=== PATIENT | female | born 1935 | race Caucasian/White ===

== ENCOUNTER 2016-07-13 20:04 | Emergency (ER) | payer OTHER ==
[2016-07-13 20:14] VITALS: PULSE 89; RESP 20
--- NOTE | 2016-07-13 20:18 | EDPHY ---
H & P Stated Complaint: intermittant r arm tingling x3 days, nausea Time Seen by Provider: 07/13/16 20:17 HPI/ROS: CHIEF COMPLAINT: Intermittent right arm paresthesias HISTORY OF PRESENT ILLNESS: The patient presents to the ED with a 3 day history of intermittent paresthesias in her right arm. The patient denies any associated weakness, slurred speech, headache or neck pain. The patient has TIA. The patient denies history of hypertension or diabetes. She does have hypercholesterolemia which is control with a statin. The patient denies any history of fall or cervical manipulation. The patient reports no recent surgery. The patient is a nonsmoker. She currently is asymptomatic. REVIEW OF SYSTEMS: A comprehensive 10 point review of systems is otherwise negative aside from elements mentioned in the history of present illness. Source: Patient Exam Limitations: No limitations - Personal History Current Tetanus Diphtheria and Acellular Pertussis (TDAP): Yes Tetanus Vaccine Date: with in last 5 years - Medical/Surgical History Hx Asthma: No Hx Chronic Respiratory Disease: No Hx Diabetes: No Hx Cardiac Disease: No Hx Renal Disease: No Hx Cirrhosis: No Hx Alcoholism: No Hx HIV/AIDS: No Hx Splenectomy or Spleen Trauma: No Other PMH: high cholestrol, , appendectomy. hysterectomy, bilat hip replacement, cataracts, toncilectomy - Social History Smoking Status: Former smoker - Physical Exam Exam: General Appearance: Alert, no distress Eyes: Pupils equal and round no pallor or injection ENT, Mouth: Mucous membranes moist Respiratory: There are no retractions, lungs are clear to auscultation Cardiovascular: Regular rate and rhythm Gastrointestinal: Abdomen is soft and nontender, no masses, bowel sounds normal Neurological: Alert and oriented x4, 5/5 strength noted all 4 extremities, sensation intact to light touch throughout the upper extremities, NIH stroke scale equals 0, cranial nerves 2-12 intact Skin: Warm and dry, no rashes Musculoskeletal: Neck is supple nontender Extremities: symmetrical, full range of motion Constitutional: Initial Vital Signs Temperature (C) 36.8 C 07/13/16 20:09 Heart Rate 89 07/13/16 20:09 Respiratory Rate 20 07/13/16 20:09 Blood Pressure 174/90 H 07/13/16 20:09 O2 Sat (%) 93 07/13/16 20:09 O2 Delivery Mode Room Air Allergies/Adverse Reactions: No Known Allergies Allergy (Unverified 07/13/16 20:07) Home Medications: Medication Instructions Recorded Premarin 07/13/16 Medical Decision Making - Diagnostics EKG Interpretation: EKG: Complete interpretation has been separately recorded in the [employer] archive. Impression: Sinus rhythm, no acute ischemic changes noted Imaging Results: Imaging Impressions Carotid Doppler Study 07/13/16 20:39 Impression: No evidence of flow-limiting carotid stenosis. I telephoned results to Dr. Lencho Sosa at 2146 hours. Measurement of carotid stenosis is based on velocity parameters that correlate the residual internal carotid diameter with [place] Symptomatic Carotid Endarterectomy Trial (NASCET) based stenosis levels. ED Course/Re-evaluation: The patient presents to the emergency department with intermittent paresthesias to her right upper extremity over the past 3 days. The patient has no abnormal neurologic findings at the time of my evaluation. The patient has no prior history of stroke or TIA. Patient has no evidence of significant hypertension upon arrival. Her EKG demonstrates no evidence of an arrhythmia. The patient did have a carotid ultrasound which demonstrates no evidence of significant stenosis. At this point do discharged home and have close follow up with her primary care provider at [facility]. She has been instructed to return to the ED for any progressively worsening neurologic symptoms, difficulty with speech, ambulation , headache or other concerns changes to her health. On my suspicion for TIA is low, the patient will be instructed to begin taking an 81 mg aspirin until she is seen in follow-up by her primary care provider. 10:30 p.m.: Patient is re-examined and in no acute distress. Her neurologic examination remains normal. At this point time the etiology of her intermittent paresthesias are uncertain. Certainly could be related to a peripheral neuropathy or cervical radiculopathy. There is no evidence of any vascular insufficiency in her upper extremity nor clinical evidence of a more significant entity such as dissection. Differential Diagnosis: Differential diagnosis considered includes stroke, TIA, peripheral neuropathy, cervical radiculopathy - Data Points Laboratory Results: Laboratory Results 07/13/16 20:55 07/13/16 20:55 07/13/16 07/13/16 20:55 20:55 WBC 9.14 10^3/uL 10^3/uL (3.80-9.50) RBC 4.80 10^6/uL 10^6/uL (4.18-5.33) Hgb 14.4 g/dL g/dL (12.6-16.3) Hct 42.3 % % (38.0-47.0) MCV 88.1 fL fL (81.5-99.8) MCH 30.0 pg pg (27.9-34.1) MCHC 34.0 g/dL g/dL (32.4-36.7) RDW 13.2 % % (11.5-15.2) Plt Count 222 10^3/uL 10^3/uL (150-400) MPV 10.1 fL fL (8.7-11.7) Neut % (Auto) 56.1 % % (39.3-74.2) Lymph % (Auto) 36.2 % % (15.0-45.0) [place] % (Auto) 5.6 % % (4.5-13.0) Eos % (Auto) 1.4 % % (0.6-7.6) Baso % (Auto) 0.4 % % (0.3-1.7) Nucleat RBC Rel Count 0.0 % % (0.0-0.2) Absolute Neuts (auto) 5.12 10^3/uL 10^3/uL (1.70-6.50) Absolute Lymphs (auto) 3.31 10^3/uL H 10^3/uL (1.00-3.00) Absolute Monos (auto) 0.51 10^3/uL 10^3/uL (0.30-0.80) Absolute Eos (auto) 0.13 10^3/uL 10^3/uL (0.03-0.40) Absolute Basos (auto) 0.04 10^3/uL 10^3/uL (0.02-0.10) Absolute Nucleated RBC 0.00 10^3/uL 10^3/uL (0-0.01) Immature Gran % 0.3 % % (0.0-1.1) Immature Gran # 0.03 10^3/uL 10^3/uL (0.00-0.10) Sodium 143 mEq/L mEq/L (134-144) Potassium 4.0 mEq/L mEq/L (3.5-5.2) Chloride 105 mEq/L mEq/L (97-110) Carbon Dioxide 25 mEq/l mEq/l (22-31) Anion Gap 13 mEq/L mEq/L (8-16) BUN 25 mg/dL H mg/dL (7-23) Creatinine 0.6 mg/dL mg/dL (0.6-1.0) Estimated GFR > 60 Glucose 102 mg/dL H mg/dL (70-100) Calcium 9.8 mg/dL mg/dL (8.5-10.4) Departure - Departure Disposition: Home, Routine, Self-Care Clinical Impression: Paresthesia Condition: Good Instructions: Paresthesia (ED) Additional Instructions: 1. Please schedule a follow-up appointment for a recheck with your primary care provider in the next 2-3 days. 2. Please return to the ED immediately for any worsening neurologic symptoms such as increasing numbness, weakness, headache, difficulty with speech or ambulation. 3. The testing performed in the emergency department today demonstrates no evidence of an obvious stroke, vascular problem with your carotid arteries, arrhythmia or significant metabolic profile. 4. I do recommend taking a 81 mg aspirin on a daily basis until told not to do so by her primary care provider. Referrals: [facility] [Primary Care Provider] - As per Instructions
--- NOTE | 2016-07-13 20:59 | CPEKG ---
Heart Rate: 79 RR Interval: 759 P-R Interval: 168 QRSD Interval: 88 QT Interval: 376 QTC Interval: 432 P [place]: 63 QRS [place]: 37 T Wave [place]: 76 EKG Severity - ABNORMAL ECG - EKG Impression: SINUS RHYTHM Electronically Signed By: Lencho Sosa 13-Jul-2016 21:02:06
[2016-07-13 21:02] LABS: % IMMATURE GRANULYOCYTES 0.3 % (0.0-1.1); ABSOLUTE IMMATURE GRANULOCYTES 0.03 10^3/uL (0.00-0.10); ADD DIFF? NO; ADD MORPH? NO; ADD SCAN? NO; ATYPICAL LYMPHOCYTE FLAG 0 (0-99); FRAGMENT RBC FLAG 0 (0-99); HEMATOCRIT 42.3 % (38.0-47.0); HEMOGLOBIN 14.4 g/dL (12.6-16.3); LEFT SHIFT FLG 0 (0-99); LIPEMIA HEMOLYSIS FLAG 90 (0-99); MEAN CELL VOLUME 88.1 fL (81.5-99.8); MEAN PLATELET VOLUME 10.1 fL (8.7-11.7); PLATELET CLUMPS FLAG 0 (0-99); PLATELET COUNT 222 10^3/uL (150-400); RED CELL DISTRIBUTION WIDTH 13.2 % (11.5-15.2)
[2016-07-13 22:21] LABS: ANION GAP 13 mEq/L (8-16); CALCIUM 9.8 mg/dL (8.5-10.4); CARBON DIOXIDE 25 mEq/l (22-31); CHLORIDE 105 mEq/L (97-110); CREATININE 0.6 mg/dL (0.6-1.0); GLOMERULAR FILTRATION RATE > 60; GLUCOSE 102 mg/dL (70-100); SODIUM 143 mEq/L (134-144)
[2016-07-13 22:51] VITALS: BP 163/80; TEMP 97.7; O2SAT 94
== END 2016-07-13 22:49 | disposition home or self-care (01) ==
DX: R20.2 Paresthesia of skin (principal); Z87.891 Personal history of nicotine dependence

== ENCOUNTER 2016-11-15 00:51 | Emergency (ER) | payer OTHER ==
--- NOTE | 2016-11-15 01:07 | EDPHY ---
H & P Stated Complaint: NUMBNESS AND TINGLING TO THE LEFT SIDE OF BODY STARTING AT 1230 HPI/ROS: HPI CHIEF COMPLAINT: Numbness and tingling right side. HISTORY OF PRESENT ILLNESS: This patient very pleasant 81-year-old female who does not take any daily medications, she states she denies any significant medical problems she denies having history of hypertension, hyperlipidemia or diabetes, denies history of vascular disease or stroke. She presents emergency room as she developed left leg numbness and tingling earlier today she is unsure exactly how long it lasts however resolved on its own. She then developed left arm numbness and tingling today when she woke up around midnight or 12 30 to go use the bathroom. She states since has resolved. However she tells me that she still does not feel that her left arm is correct. She is unsure exactly how to describe her left arm difference from her right arm. She thinks it is heavier. She denies headache, denies pain, denies focal weakness. Denies any active numbness or tingling. Her main complaint is earlier today she had left leg numbness tingling, and earlier tonight she had left arm numbness and tingling. Arm feels heavy. Past Medical History: No history of hypertension, diabetes, TIA. Past Surgical History: No significant surgical history Social History: Denies daily use drugs alcohol tobacco products. Family History: She states grandmother is both had strokes. ROS REVIEW OF SYSTEMS: A comprehensive 10 point review of systems is otherwise negative aside from elements mentioned in the history of present illness. Exam Constitutional appears well nontoxic triage nursing summary reviewed, vital signs reviewed, awake/alert. Eyes normal conjunctivae and sclera, EOMI, PERRLA. HENT normal inspection, atraumatic, moist mucus membranes, no epistaxis, neck supple/ no meningismus, no raccoon eyes. Respiratory clear to auscultation bilaterally, normal breath sounds, no respiratory distress, no wheezing. Cardiovascular rate normal, regular rhythm, no murmur, no edema, distal pulses normal. Gastrointestinal soft, non-tender, no rebound, no guarding, normal bowel sounds, no distension, no pulsatile mass. Genitourinary no CVA tenderness. Musculoskeletal no midline vertebral tenderness, full range of motion, no calf swelling, no tenderness of extremities, no meningismus, good pulses, neurovascularly intact. Skin pink, warm, & dry, no rash, skin atraumatic. Neurologic awake, alert and oriented x 3, AAOx3, moves all 4 extremities equally, motor intact, sensory intact, CN II-XII intact, normal cerebellar, normal vision, normal speech. NIH stroke scale 0. Normal cranial nerves. Normal upper strength of both extremities. No weakness of the left arm. Sensation intact bilaterally and symmetrical. Psychiatric normal mood/affect. Heme/Lymph/Immune no lymphadenopathy. Differential Diagnosis: Includes but is not limited to in a particular order, TIA, CVA, intracranial bleed, electrolyte disturbance, ACS Medical Decision Making: Plan for this patient stroke rule out, ACS rule out. Check CT head without contrast for neurological symptoms, EKG, blood work re- evaluate. Re-evaluation: EKG interpretation by me on record in [employer] system. Impression time of EKG 1:23 a.m., this is sinus rhythm rate of 81 I do not appreciate acute ST elevation. Or significant ST depression or significant T-wave abnormalities. There is ST segment flattening in inferior leads. CT scan of the head without IV contrast. The results of the study are negative for acute infarct or bleed. The study was read by Dr. Velazquez I viewed the images myself on the PACS system. 0334: Had a very lengthy discussion with this patient and daughter at bedside about risk stratification in terms TIA stroke. He has no symptoms at this time however given her constellation of symptoms I do feel that she should be admitted for stroke evaluation TIA. She agrees for admission. Will admitted to the hospitalist service for further evaluation of this MRI. Source: Patient - Personal History Current Tetanus/Diphtheria Vaccine: Unsure Tetanus Vaccine Date: with in last 5 years - Medical/Surgical History Hx Asthma: No Hx Chronic Respiratory Disease: No Hx Diabetes: No Hx Cardiac Disease: No Hx Renal Disease: No Hx Cirrhosis: No Hx Alcoholism: No Hx HIV/AIDS: No Hx Splenectomy or Spleen Trauma: No Other PMH: high cholestrol, , appendectomy. hysterectomy, bilat hip replacement, cataracts, toncilectomy - Social History Smoking Status: Former smoker Constitutional: Initial Vital Signs Temperature (C) 37.4 C 11/15/16 00:52 Heart Rate 81 11/15/16 00:52 Respiratory Rate 18 11/15/16 00:52 Blood Pressure 159/76 H 11/15/16 00:52 O2 Sat (%) 96 11/15/16 00:52 O2 Delivery Mode Room Air Allergies/Adverse Reactions: No Known Allergies Allergy (Unverified 07/13/16 20:07) Home Medications: Medication Instructions Recorded Premarin 07/13/16 Medical Decision Making - Data Points Laboratory Results: Laboratory Results 11/15/16 01:44 11/15/16 01:44 11/15/16 11/15/16 11/15/16 01:44 01:44 01:44 WBC 7.18 10^3/uL 10^3/uL (3.80-9.50) RBC 4.79 10^6/uL 10^6/uL (4.18-5.33) Hgb 14.4 g/dL g/dL (12.6-16.3) Hct 41.9 % % (38.0-47.0) MCV 87.5 fL fL (81.5-99.8) MCH 30.1 pg pg (27.9-34.1) MCHC 34.4 g/dL g/dL (32.4-36.7) RDW 12.9 % % (11.5-15.2) Plt Count 284 10^3/uL 10^3/uL (150-400) MPV 9.4 fL fL (8.7-11.7) Neut % (Auto) 46.6 % % (39.3-74.2) Lymph % (Auto) 45.7 % H % (15.0-45.0) [place] % (Auto) 5.0 % % (4.5-13.0) Eos % (Auto) 1.9 % % (0.6-7.6) Baso % (Auto) 0.4 % % (0.3-1.7) Nucleat RBC Rel Count 0.0 % % (0.0-0.2) Absolute Neuts (auto) 3.34 10^3/uL 10^3/uL (1.70-6.50) Absolute Lymphs (auto) 3.28 10^3/uL H 10^3/uL (1.00-3.00) Absolute Monos (auto) 0.36 10^3/uL 10^3/uL (0.30-0.80) Absolute Eos (auto) 0.14 10^3/uL 10^3/uL (0.03-0.40) Absolute Basos (auto) 0.03 10^3/uL 10^3/uL (0.02-0.10) Absolute Nucleated RBC 0.00 10^3/uL 10^3/uL (0-0.01) Immature Gran % 0.4 % % (0.0-1.1) Immature Gran # 0.03 10^3/uL 10^3/uL (0.00-0.10) PT 13.2 SEC SEC (12.0-15.0) INR 1.01 (0.83-1.16) Sodium 142 mEq/L mEq/L (134-144) Potassium 4.1 mEq/L mEq/L (3.5-5.2) Chloride 104 mEq/L mEq/L (97-110) Carbon Dioxide 25 mEq/l mEq/l (22-31) Anion Gap 13 mEq/L mEq/L (8-16) BUN 15 mg/dL mg/dL (7-23) Creatinine 0.7 mg/dL mg/dL (0.6-1.0) Estimated GFR > 60 Glucose 112 mg/dL H mg/dL (70-100) Calcium 9.8 mg/dL mg/dL (8.5-10.4) Troponin I < 0.012 ng/mL ng/mL (0.000-0.034) Medications Given: Discontinued Medications Sodium Chloride (Ns) 1,000 mls @ 0 mls/hr IV ONCE ONE; Wide Open PRN Reason: Protocol Stop: 11/15/16 01:17 Last Admin: 11/15/16 01:52 Dose: Not Given Departure - Departure Disposition: [facility] Inpatient Acute Clinical Impression: TIA (transient ischemic attack) Qualifiers: Transient cerebral ischemia type: unspecified Qualified Code(s): G45.9 - Transient cerebral ischemic attack, unspecified Condition: Good Referrals: [facility] [Primary Care Provider] - As per Instructions
[2016-11-15] MEDS ORDERED: NS 1,000 ML IV ONE (01:16)
--- NOTE | 2016-11-15 01:25 | CPEKG ---
Heart Rate: 81 RR Interval: 741 P-R Interval: 172 QRSD Interval: 84 QT Interval: 396 QTC Interval: 460 P [place]: 60 QRS [place]: 52 T Wave [place]: 33 EKG Severity - ABNORMAL ECG - EKG Impression: SINUS RHYTHM EKG Impression: PROBABLE INFERIOR INFARCT, AGE INDETERMINATE Electronically Signed By: Lopez Lynne 15-Nov-2016 08:01:59
[2016-11-15 02:01] LABS: % IMMATURE GRANULYOCYTES 0.4 % (0.0-1.1); ABSOLUTE IMMATURE GRANULOCYTES 0.03 10^3/uL (0.00-0.10); ADD DIFF? NO; ADD MORPH? NO; ADD SCAN? NO; ATYPICAL LYMPHOCYTE FLAG 0 (0-99); FRAGMENT RBC FLAG 0 (0-99); HEMATOCRIT 41.9 % (38.0-47.0); HEMOGLOBIN 14.4 g/dL (12.6-16.3); LEFT SHIFT FLG 0 (0-99); LIPEMIA HEMOLYSIS FLAG 90 (0-99); MEAN CELL HEMOGLOBIN 30.1 pg (27.9-34.1); MEAN CELL HEMOGLOBIN CONCENTR. 34.4 g/dL (32.4-36.7); MEAN CELL VOLUME 87.5 fL (81.5-99.8); MEAN PLATELET VOLUME 9.4 fL (8.7-11.7); PLATELET CLUMPS FLAG 10 (0-99); PLATELET COUNT 284 10^3/uL (150-400); RED BLOOD CELL COUNT 4.79 10^6/uL (4.18-5.33); RED CELL DISTRIBUTION WIDTH 12.9 % (11.5-15.2)
[2016-11-15 02:10] LABS: INR 1.01 (0.83-1.16); PROTIME(PATIENT) 13.2 SEC (12.0-15.0)
[2016-11-15 02:19] LABS: ANION GAP 13 mEq/L (8-16); CALCIUM 9.8 mg/dL (8.5-10.4); CARBON DIOXIDE 25 mEq/l (22-31); CHLORIDE 104 mEq/L (97-110); CREATININE 0.7 mg/dL (0.6-1.0); GLOMERULAR FILTRATION RATE > 60; GLUCOSE 112 mg/dL (70-100); POTASSIUM 4.1 mEq/L (3.5-5.2); SODIUM 142 mEq/L (134-144)
[2016-11-15 02:30] LABS: TROPONIN I < 0.012 ng/mL (0.000-0.034)
[2016-11-15] MEDS ORDERED: ONDANSETRON 4 MG/2 ML VIAL IVP PRN (05:12)
[2016-11-15] MEDS ORDERED: ACETAMINOPHEN 325 MG TAB PO PRN (05:12)
[2016-11-15] MEDS ORDERED: HYDROCODONE/APAP 5/325 TAB PO PRN (05:12)
[2016-11-15] MEDS ORDERED: NS 1,000 ML IV SCH (05:15)
[2016-11-15 06:20] VITALS: RESP 16
[2016-11-15 07:06] LABS: ANION GAP 12 mEq/L (8-16); CALCIUM 9.2 mg/dL (8.5-10.4); CARBON DIOXIDE 23 mEq/l (22-31); CHLORIDE 109 mEq/L (97-110); CHOLESTEROL 138 mg/dL (140-220); CHOLESTEROL/HDL RATIO 2.94 RATIO (1.00-4.44); CREATININE 0.5 mg/dL (0.6-1.0); GLOMERULAR FILTRATION RATE > 60; GLUCOSE 106 mg/dL (70-100); HIGH DENSITY LIPOPROTEIN 47 mg/dL (40-85); LOW DENSITY LIPOPROTEIN 61 mg/dL (80-100); MAGNESIUM 1.9 mg/dL (1.6-2.3); NON-HIGH DENSITY LIPOPROTEIN 91 mg/dL (90-129); POTASSIUM 4.1 mEq/L (3.5-5.2); SODIUM 144 mEq/L (134-144); TRIGLYCERIDE 151 mg/dL (35-135); VERY LOW DENSITY LIPOPROTEINS 30 mg/dL (8-25)
[2016-11-15] MEDS ORDERED: ASPIRIN EC 81 MG TAB PO SCH (09:00)
[2016-11-15] MEDS ORDERED: ASPIRIN 325 MG TAB PO SCH (09:00)
[2016-11-15 09:50] VITALS: PULSE 72; TEMP 98.2
[2016-11-15 10:10] LABS: HEMOGLOBIN A1C 5.9 % (4.0-6.0)
--- NOTE | 2016-11-15 11:02 | GHP ---
[f rep st] HISTORY AND PHYSICAL DATE OF ADMISSION: 11/15/2016 CHIEF COMPLAINT: Left arm numbness, heaviness. HISTORY OF PRESENT ILLNESS: A pleasant 81-year-old female with no significant medical history, taking only Lipitor, who presented with left arm tingling, numbness, and heaviness. She presented to the emergency room earlier this year in July with intermittent tingling in her hand to her elbow. At that time, she had a negative evaluation, including a carotid ultrasound. She was discharged home to follow up with her PCP. She had been doing very well since that time until yesterday at 2:30 p.m., when she noticed left foot numbness and tingling that extended up her leg. She denied any slurred speech, visual changes, difficulty word finding. She went to bed without issue and woke up at 12 a.m. to go to the restroom. At that time, she noticed left arm tingling and heaviness. That resolved by the time she arrived to the emergency room. No fevers, chills, sweats. No nausea, vomiting, diarrhea. No headaches. No history of migraines. She exercises 3 times a day, doing aerobics without chest pain or shortness of breath. Denies palpitations or racing heart. PAST MEDICAL HISTORY: Hyperlipidemia, on Lipitor. PAST SURGICAL HISTORY: None. FAMILY HISTORY: Paternal and maternal grandmothers with strokes. SOCIAL HISTORY: Lives in [place] by herself. Has a daughter close by. No illicits, tobacco, or alcohol. ALLERGIES: No known drug allergies. PHYSICAL EXAMINATION: VITAL SIGNS: Temperature 36.8, blood pressure 156/83, heart rate 72, respirations 16. 91% on room air. GENERAL: Well-appearing female, younger than stated age, sitting up in bed. No acute distress HEENT: PERRLA. EOMI. Oropharynx clear. CV: Regular rate, rhythm. No murmurs, gallops, rubs. LUNGS: Clear to auscultation. No crackles or wheezing. ABDOMEN: Soft, nontender, nondistended. Positive bowel sounds. : No suprapubic tenderness. MUSCULOSKELETAL: 5/5 upper and lower extremity strength. NEURO: 2 through 12 intact. Normal sensation to touch. Negative pronator drift. +2 symmetric patellar and Achilles reflexes. PSYCH: Alert and oriented x3. LABS: WBC 7, hemoglobin 14, hematocrit 41, platelets 284. Coagulation study within normal. Sodium 142, potassium 4.1, chloride 104, anion gap 13, creatinine 0.7, glucose 112. A1c pending. Troponin less than 0.012. Triglycerides 151, cholesterol 138, LDL 61. Chest x-ray, personally reviewed by me: No effusion or opacity. EKG is personally reviewed by me. Normal sinus rhythm. Q-waves in inferior leads. CT head: Atrophy and white matter small vessel disease. No acute hemorrhage. Brain MRI: Mild cerebral atrophy. No acute infarct or hemorrhage. Several nonspecific hyperintense T2/FLAIR signal abnormalities in the white matter of bilateral cerebral hemispheres. Carotid ultrasound: No ICA stenosis. ASSESSMENT AND PLAN: 1. Left arm tingling/heaviness: concern for TIA. Symptoms have since resolved. CT and MRI of head are negative for acute hemorrhage or stroke. No stenosis on carotid Doppler. No evidence of arrhythmia on EKG and patient denies any palpitations. Awaiting echocardiogram. Her LDL is less than 70. Continue her Lipitor. Add an aspirin. Consider a Holter monitor at discharge to evaluate for arrhythmia. Speech, Physical Therapy, Occupational Therapy to evaluate. Frequent neuro checks. Neuro to evaluate 2. Hyperlipidemia. Continue Lipitor. 3. Diet: Cardiac. 4. Deep venous thrombosis prophylaxis: Ambulatory. Sequential compression devices. 5. Disposition: Patient warrants observation admission, given acute transient ischemic attack, warranting neurology evaluation, neuro checks, and echocardiogram. /[id number]/MODL MTDD
--- NOTE | 2016-11-15 12:08 | ECHO ---
[email or web address] [address] Main: [phone] Fax: [email or web address] Echocardiogram Name: ROGER GREEN MR#: [id number] Study Date: 11/15/2016 Study Time: 11:27 AM Date of : 1935 Age: 81 year(s) Height: 157.5 cm (62 in.) Weight: 68.04 kg (150 lb.) BSA: 1.69 m2 Gender: Female Examination: Echo Indication: Ischemic stroke Image Quality: Contrast: Requested by: Maru Arce BP: / Heart Rate: Rhythm: Indication: Ischemic stroke Procedure Staff Employment Recruiter: Danielle Kent Physician: Luis Hopson Requesting Provider: Conclusions: Normal study No source of embolism suggested by this study. Measurements: Chambers Valvular Assessment AV/MV Valvular Assessment TV/PV Normal Normal Normal Name Value Range Name Value Range Name Value Range Ao Silke (MM): 2.9 cm (2.2 cm-3.7 AV Vmax: 1.74 m/s (1 m/s-1.7 cm) m/s) IVSd (2D): 0.8 cm (0.6 cm-1.1 AV maxP mmHg ( - ) cm) AV meanP mmHg ( - ) LVDd (2D): 4.5 cm (3.9 cm-5.3 AR (PHT): 602 ms ( - ) cm) MV E Vmax: 0.81 m/s ( - ) LVDs (2D): 2.3 cm (2.1 cm-4 MV A Vmax: 0.91 m/s ( - ) cm) MV E/A: 0.89 ( - ) LVPWd (2D): 0.7 cm ( - ) LVEF (MOD4): 70 % (>=55 %) EF Range: 65-70 % Continued Measurements: Chambers Valvular Assessment AV/MV Name Value Name Value LADs: 3.7 cm MV E/E' Septal: 17.70 LADs Lon.6 cm MV E/E' Lateral: 15.10 LA Area: 13.8 cm2 AR Vmax: 4.20 cm/s Additional Vessels Patient: ROGER GREEN Study Date: 11/15/2016 Page 1 of 2 11:27 AM Name Value Ao Ascendin.1 cm Findings: Left Ventricle: Normal size left ventricle. Normal global systolic LV function. The ejection fraction is estimated to be 65-70 %. No regional wall motion abnormality. Right Ventricle: Normal size right ventricle. Left Atrium: The left atrium is normal in size. An agitated saline study was performed and was negative for intracardiac shunting. Right Atrium: The right atrium is normal in size. Mitral Valve: The mitral valve is normal in appearance. Mild mitral valve regurgitation is present. Aortic Valve: The aortic valve is tri-leaflet. Mild aortic valve regurgitation is present. Tricuspid Valve: The tricuspid valve appears normal. I. Trivial tricuspid valve regurgitation. Pulmonic Valve: The pulmonic valve is normal in appearance. Trivial pulmonic valve regurgitation. Pericardium: Trace anterior pericardial effusion vs. fat pad.. (No Signature Object) Patient: ROGER GREEN Study Date: 11/15/2016 Page 2 of 2 11:27 AM [id number]
--- NOTE | 2016-11-15 14:25 | NEUROPROG ---
Assessment: [id number] CC: Dr. Francoise Herman consulted neurology for left arm/leg paresthesias. HPI: Pt denied PMHx. On 11/14/16 she noted left leg paresthesias. She went to bed and awoke later with left arm tingling. She then presented to the [facility] ER for evaluation. Symptoms improved in the ER but she still felt her left arm felt different. She denied BEAVER, neck pain, weakness, or fixed numbness. When I examined her she had a normal neurologic exam and felt nearly completely back to normal (mild sense of left arm heaviness). Pt had a brain MRI, TTE, and carotid U/S which was all unremarkable. She declined performing 24 hour of telemetry so was placed on aspirin 81 mg qd and told to f/u with me in 1-6 weeks. PMHx: HLD, C-sect, appi, hysterectomy, B/L hip replacement, cataracts, tonsillectomy SHx: former tobacco user FHx: strokes ROS: Pt denied acute fever, total vision loss, active severe chest pain, respiratory failure, total body severe rash, total bowel/bladder incontinence, psychosis, active seizures, or active bleeding O: VS reviewed General: Alert Eyes: Fundoscopic exam not able to visualize optic disks CV: Heart RRR, no murmur, no carotid bruit Lungs: Clear to auscultation bilaterally, no rhonci or rales Neuro: - Mental: . Oriented x person/place/date . concentration appears normal . speech fluency/comprehension normal . memory appears normal . fund of knowledge appear intact - Cranial Nerves: . II: PERRL, VFFTC . III/IV/: EOMI, no nystagmus, normal smooth pursuits, no Ptosis . V: facial sensation intact to LT . VII: face symmetric to eye closure and smile . VIII: hearing intact to conversation . IX/X: uvula raises symmetrically . XI: SCM 5/5 B/L strength . XII: tongue protrudes midline w/nl strength - Motor: . Tone: normal tone in all 4 extrem . Strength: no pronator drift, strength 5/5 throughout (B/L delt, bic, tri, hand relations liaison, hf/he, df/pf) - Reflexes: B/L bic/BR/patella 2/4 - Sensory: all 4 extrem intact to light touch - Coord: [id number] wnl, ERIKA wnl, [id number] wnl - Gait: normal casual gait - NIH SS 0 Labs: 11/15/16- CBC wnl, INR 1.01, CMP Cr 0.5L Gluc 106H, LDL 61L, TSH wnl Rads: 11/15/16- Head CT: no acute changes or bleed (I personally visualized the images on 11/15/16.) 11/15/16- Brain MRI w/o con: mil atrophy, no acute changes or stroke, mod CMVD 11/15/16- Carotid U/S: no significant flow limiting stenosis 11/15/16- TTE: no cardioembolic stroke source seen 11/15/16- EKG: no afib seen Assessment: 1. Transient left arm/leg paresthesias (resolved): Normal neurologic exam and normal brain MRI, TTE, EKG, and carotid U/S on 11/15/16. Symptoms persisted for hours (mild sense of left arm heaviness) so stroke or TIA seems unlikely. Possibly atypical migraine or could be peripheral nerve issue. WIll have pt f/u outpatient and reassess. We can offer EMG/NCS of left arm/leg at that time to further evaluate. Will give aspirin to cover small chance of atypical TIA. Plan: - Begin aspirin 81 mg qd to cover small chance of atypical TIA - H1AC pending - F/U in neurology clinic 1-6 weeks after hospital discharge, consider EMG/NCS of left arm/leg at that time Objective: Vital Signs Temp Pulse Resp BP Pulse Ox 36.8 C 72 16 156/83 H 91 L 11/15/16 09:50 11/15/16 09:50 11/15/16 09:50 11/15/16 09:50 11/15/16 09:50 Laboratory Results 11/15/16 06:49 PT 13.2 SEC (12.0-15.0) 11/15/16 01:44 INR 1.01 (0.83-1.16) 11/15/16 01:44 Allergies/Adverse Reactions: No Known Allergies Allergy (Unverified 07/13/16 20:07)
--- NOTE | 2016-11-15 17:35 | GDS ---
[f rep st] DISCHARGE SUMMARY DISCHARGE DIAGNOSES: 1. Atypical transient ischemic attack versus migraine. 2. Hyperlipidemia. BRIEF HISTORY OF PRESENT ILLNESS: A pleasant 81-year-old female with no significant past medical his tory, taking only Lipitor, presenting with left arm tingling, numbness and heaviness. Please see H a nd P dated today for full details. HOSPITAL COURSE BY PROBLEM: Atypical TIA versus migraine versus a peripheral nerve issue: The patie nt's symptoms resolved prior to admission. She underwent a thorough evaluation including a negative carotid ultrasound. CT head without infarct. MRI showed cerebral atrophy. Echocardiogram without t hrombus or PFO. LDL is at goal. Continue her Lipitor. Added baby aspirin. She was evaluated by Dr Mehdi Rasheed, who agrees with plan. Follow up with him in 1 to 6 weeks. They can offer EMG of left arm. The patient was advised for 24 hours of telemetry to evaluate for arrhythmia. She understands the dc sk, but would like an outpatient Holter monitor. She is followed by [facility], so she will contact her doctor tomorrow. DISPOSITION: Patient is stable for discharge. NEW MEDICATIONS: Aspirin 81 mg. FOLLOWUP: 1. Neurology clinic with Dr. Rasheed in 1 to 6 weeks. 2. PCP for Holter monitor. /[id number]/MODL
[2016-11-15] MEDS ORDERED: ATORVASTATIN CALCIUM 40 MG TAB PO SCH (18:00)
[2016-11-15 19:17] VITALS: BP 153/81; O2SAT 93
[2016-11-15] MEDS ORDERED: ESTROGENS,CONJUGATED 30 GM CRTUBE VG SCH (21:00)
[2016-11-16] MEDS ORDERED: Herbals/Supplements -Info Only PO SCH (09:00)
[2016-11-16] MEDS ORDERED: CHOLECALCIFEROL VIT D3 1,000 UNITS TAB PO SCH (09:00)
== END 2016-11-15 16:05 | disposition home or self-care (01) ==
LOC: UNDOADMOB 03:55
DX: G45.9 Transient cerebral ischemic attack, unspecified (principal)